=== PATIENT | female | born 2000 | race Caucasian/White ===

== ENCOUNTER 2020-07-29 12:08 | Outpatient (REF) | payer OTHER, SELFPAY ==
[2020-07-29 12:33] LABS: COVID-19 Test Negative (Negative); IDNOW Serial# 55D5AD1C
== END 2020-07-29 12:09 | disposition home or self-care (01) ==
LOC: HO.EMPCOV 12:08
PROVIDERS: Visit Provider Internal Medicine
DX: Z20.822 Contact with and (suspected) exposure to COVID-19 (principal)
CPT/HCPCS: 36415; 87635; C9803

== ENCOUNTER 2021-11-19 07:52 | Outpatient (REF) | payer OTHER, SELFPAY ==
--- NOTE | ~2021-11-19 | XR_ITS ---
EXAMINATION: XR HAND, RIGHT CLINICAL INFORMATION: Pain COMPARISON: None TECHNIQUE: PA, lateral, and oblique views of the right hand. XR/XR hand RT min 3V FINDINGS/IMPRESSION: Nondisplaced minimally angulated fracture of the fifth proximal phalanx, proximal metaphysis with slight dorsal cortical impaction. No intra-articular extension. No additional fractures. No dislocation. Soft tissue swelling about the fifth digit.
== END 2021-11-19 07:53 | disposition home or self-care (01) ==
LOC: HO.HOSX 07:52
PROVIDERS: Visit Provider Physician Assistant
DX: S62.616A Displaced fracture of proximal phalanx of right little finger, initial encounter for closed fracture (principal)
CPT/HCPCS: 26720; 73130; 99202

== ENCOUNTER 2021-12-01 09:12 | Outpatient (REF) | payer OTHER, SELFPAY ==
--- NOTE | ~2021-12-01 | XR_ITS ---
EXAMINATION: XR HAND, RIGHT CLINICAL INFORMATION: Right hand pain. COMPARISON: Right hand radiographs dated 11/19/2021. TECHNIQUE: PA, lateral, and oblique views of the right hand. FINDINGS: Redemonstration of a mildly displaced, predominantly oblique fracture through the base of the 5th proximal phalanx. No change in anatomic alignment. No significant new bone/callus formation. No dislocation. No joint space narrowing or marginal osteophytes. No osseous erosion. XR/XR hand RT min 3V IMPRESSION: Fifth proximal phalangeal fracture in unchanged anatomic alignment.
== END 2021-12-01 09:13 | disposition home or self-care (01) ==
LOC: HO.HOSX 09:12
PROVIDERS: Visit Provider Orthopaedic Surgery
DX: S62.616A Displaced fracture of proximal phalanx of right little finger, initial encounter for closed fracture (principal)
CPT/HCPCS: 26720; 73130; 99212

== ENCOUNTER 2021-12-01 20:30 | Emergency (ER) | payer OTHER, SELFPAY ==
[2021-12-01 20:35] VITALS: BP 147/79; PULSE 87; RESP 15; TEMP 36.3; O2SAT 94; BMI 24.7
[2021-12-01 20:48] VITALS: BP 116/80; PULSE 91; TEMP 36.6; O2SAT 99
--- NOTE | 2021-12-01 22:38 | ED_ITS ---
HPI - Extremity Problem General Chief complaint: Extremity Injury, Upper Stated complaint: Finger pain Time Seen by Provider: 12/01/21 20:56 Source: patient Mode of arrival: ambulatory Limitations: no limitations History of Present Illness HPI Narrative: 21-year-old female here with reports of right hand pain with numbness of the 3rd and 4th digit after having a cast applied in the orthopedic office just earlier today. She tells me prior to this she had no pain or sensation change. She tells me she has a known fracture of the of the right proximal phalanx (5th digit). She is right-handed. She had this injury while she was in the [employer] after a crush injury. She has been followed by Orthopedics and had been using a foam splint until today when a hard cast was applied. Related Data Home Medications Medication Instructions Recorded Confirmed No Known Home Meds 11/19/21 11/19/21 Allergies Allergy/AdvReac Type Severity Reaction Status Date / Time cephalexin [From Keflex] Allergy ate lining Verified 12/01/21 12:51 of stomach Review of Systems Review of Systems: Yes all other systems are reviewed and are negative Constitutional: Constitutional: Reports no additional constitutional complaints, Denies body ache(s), Denies chills, Denies fever(s), Denies headache(s) and Denies weakness Eyes: Eyes: Reports no additional eye complaints and Denies change in vision ENT: Reports system reviewed and no additional complaints, except as documented, Denies dizziness, Denies headache(s), Denies nasal congestion, Denies nasal discharge and Denies neck pain Cardiovascular: Cardiovascular: Reports no additional cardiovascular complaints, Denies chest pain, Denies leg edema and Denies dyspnea Respiratory: Respiratory: Reports no additional respiratory complaints, Denies cough and Denies dyspnea Gastrointestinal: Gastrointestinal: Reports no additional gastrointestinal complaints, Denies abdominal pain, Denies diarrhea, Denies nausea and Denies vomiting Genitourinary: Genitourinary: Reports no additional female genitourinary complaints and Denies urinary incontinence Musculoskeletal: Musculoskeletal: Reports no additional musculoskeletal complaints, Denies back pain, Reports arthralgias, Denies joint swelling, Denies neck pain, Reports numbness and Denies tingling Integumentary/Breasts: Skin/Breast: Reports system reviewed and no additional complaints, except as docu and Denies rash Neurologic: Reports system reviewed and no additional complaints, except as documented, Denies Abnormal speech present, Denies dizziness, Denies headache(s), Reports numbness, Denies tingling and Denies weakness PMFSH Past Medical History Attestation statement: The following information was validated with the patient. 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 Physical Exam Vital Signs: Vital Signs: Last Vital Signs Temp 97.9 F 12/01/21 20:48 Pulse 91 12/01/21 20:48 Resp 15 12/01/21 20:35 BP 116/80 12/01/21 20:48 Pulse Ox 99 12/01/21 20:48 BMI result Body Mass Index 24.7 Const: General: cooperative, healthy appearing, comfortable and no acute distress Orientation/consciousness: patient oriented x3 Limitations: no limitations HEENT: Head: Yes normal to inspection Ears: hearing grossly normal bilaterally General nose exam: Normal external nose present Face and sinus: Yes normal facial exam Mouth: Normal oral and palatal mucosa present Throat: Yes posterior oropharynx normal Eyes: General: appearance normal, both eyes and all related structures Pupils: Equal, round and reactive pupils present Neck: Neck: Yes normal visual inspection Chest: Chest palpation & inspection: normal inspection of the chest Resp: Effort & Inspection: normal respiratory effort Auscultation: clear to auscultation bilaterally Cardio: Rate: regular rate Rhythm: regular rhythm Peripheral pulses: Peripheral pulses 2+ throughout GI: Inspection: Yes normal to inspection Palpation (GI): Soft to palpation and nontender Auscultation: normal bowel sounds Back/Spine/Pelvis: Thoracic/Lumbar Spine: thoracic and lumbar spine normal to inspection Skin: General skin exam: no rashes or lesions noted Neuro: General: patient oriented x3, no focal motor deficits and normal sensation to monofilament Cranial nerves: Yes Equal, round and reactive pupils present Cognition (Neuro): normal cognition Speech: No Abnormal speech present Gait exam (Neuro): Normal gait present Motor exam (neuro): 5/5 motor strength present throughout Extrem: Other: There is a hard cast in place. Patient reports pain over the 4th and 5th digit distally and numbness over the 4th and 5th digits. General: Yes normal to inspection Course Course Course Narrative: 21-year-old female with a known fracture of the proximal phalanx of the right 5th digit here with numbness and pain after cast was applied in the orthopedic office earlier today. Cast was removed by Dr Hodges with immediate improvement in symptoms. Patient was placed in ulnar gutter splint and partial flexion of the 4th and 5th digits by nursing (Claudia MEDINA). Recommend she follow-up with Orthopedics office this week. I did speak to the orthopedic on-call Shaina WHEELER. MDM - Extremity (Nontraumatic) Medical Records Attestation: I reviewed the patient's medical records. Lab Data Attestation: I reviewed the patient's lab results. Procedures Orthopedic Splinting/Casting Injury #1: Side: right Upper Extremity Injury Location: hand Upper Extremity Immobilizer: ulnar gutter Discharge Plan Discharge Clinical Impression: Aftercare for cast or splint check or change, Fracture of proximal phalanx of finger of right hand, Fracture of proximal phalanx of right little finger Patient Disposition: Home, Self-Care Instructions: Finger Fracture (ED), Splint Care (ED) Additional Instructions: Call Orthopedics tomorrow Do not get the splint wet Prescriptions: No Action No Known Home Meds 0RF Referrals: Shannan Murphy MD [Physician] - 3 days
== END 2021-12-01 23:15 | disposition home or self-care (01) ==
PROVIDERS: Emergency Provider Internal Medicine
DX: S62.616A Displaced fracture of proximal phalanx of right little finger, initial encounter for closed fracture (principal); X58.XXXA Exposure to other specified factors, initial encounter; Y93.9 Activity, unspecified; Y92.9 Unspecified place or not applicable; Y99.9 Unspecified external cause status
CPT/HCPCS: 29130; 99282; 99283

== ENCOUNTER 2021-12-02 09:35 | Outpatient (REF) | payer OTHER, SELFPAY ==
--- NOTE | ~2021-12-02 | XR_ITS ---
EXAMINATION: XR HAND, RIGHT CLINICAL INFORMATION: Pain COMPARISON: X-ray 12/01/2021, 11/19/2021 TECHNIQUE: PA, lateral, and oblique views of the right hand. FINDINGS: Redemonstrated is a mildly displaced, predominantly oblique fracture through the base of the fifth proximal phalanx, with no significant interval change in positioning and alignment. No significant callus or new bone formation is seen. No new additional fractures identified. XR/XR hand RT min 3V IMPRESSION: Stable appearance and alignment of the fifth proximal phalanx fracture.
== END 2021-12-02 09:36 | disposition home or self-care (01) ==
LOC: HO.HOSX 09:35
PROVIDERS: Visit Provider Orthopaedic Surgery
DX: S62.616D Displaced fracture of proximal phalanx of right little finger, subsequent encounter for fracture with routine healing (principal)
CPT/HCPCS: 29075; 73130; 99212

== ENCOUNTER → 2021-12-10 14:03 | Outpatient (BNVA) | payer OTHER, SELFPAY | PROVIDERS: Visit Provider Orthopaedic Surgery | DX: S62.616D Displaced fracture of proximal phalanx of right little finger, subsequent encounter for fracture with routine healing (principal) | CPT/HCPCS: 99212 ==

== ENCOUNTER 2021-12-17 08:40 | Outpatient (REF) | payer OTHER, SELFPAY ==
--- NOTE | ~2021-12-17 | XR_ITS ---
EXAMINATION: XR HAND, RIGHT CLINICAL INFORMATION: Displaced fracture of the proximal phalanx of the right little finger. COMPARISON: 12/02/2021 TECHNIQUE: PA, lateral, and oblique views of the right hand. FINDINGS: There is a fracture along the proximal shaft of the fifth digit proximal phalanx. The fracture line remains evident. No definite intra-articular extension. Unchanged alignment from prior. No significant callus formation. Joint spaces are maintained. XR/XR hand RT min 3V IMPRESSION: No significant change in appearance of the fracture at the proximal shaft of the fifth digit proximal phalanx.
== END 2021-12-17 08:41 | disposition home or self-care (01) ==
LOC: HO.HOSX 08:40
PROVIDERS: Visit Provider Orthopaedic Surgery
DX: S62.616D Displaced fracture of proximal phalanx of right little finger, subsequent encounter for fracture with routine healing (principal); X58.XXXD Exposure to other specified factors, subsequent encounter
CPT/HCPCS: 73130; 99212

== ENCOUNTER 2022-01-05 08:30 | Outpatient (RCR) | payer OTHER, SELFPAY ==
--- NOTE | 2021-12-29 10:42 | MHC.OT.EP ---
[address] [phone] Occupational Therapy Plan of Care Date of Evaluation: 12/29/21 Diagnosis: Displaced fx of R small finger proximal phalanx Assessment: Pt. is a 21 y/o female s/p displaced fx of R small finger proximal phalanx. Injury happened while at work when a dumpster lid fell on her hand. Pt. is currently out of work as there is no light duty option. Pt. is having some pain and discomfort with lifting heavy items and weight bearing. She reports mild difficulty with opening jars and verbalizes some concern with lack of hand strength as she frequently needs to lift/position people at work. Fawn would benefit from short term skilled OT services to restore normal hand function and regain strength. Frequency and Duration: The patient will be seen 2x/wk for 3 weeks Short Term Goals: See below Senior Living Goals: IND with HEP Pain free with ADL's/IADL's R gross grasp >55# Pt. will demonstrate ability to lift >25# without c/o pain for safe return to work Treatment Plan: Therapeutic Exercise Therapeutic Activity Home Exercise Program Patient Education Ultrasound Paraffin Fluidotherapy MHP Cold Packs Joint Mobilization Soft Tissue Mobilization Kinesiotaping Electronically Signed By: Angle Newsome, OTR/L Please Sign and return to therapist. Thank you once again for your referral.
--- NOTE | 2021-12-29 10:58 | MHC.OT.EP ---
[address] [phone] Occupational Therapy Plan of Care Date of Evaluation: 12/29/21 Diagnosis: Displaced fx of R small finger proximal phalanx Assessment: Pt. is a 21 y/o female s/p displaced fx of R small finger proximal phalanx. Injury happened while at work when a dumpster lid fell on her hand. Pt. is currently out of work as there is no light duty option. Pt. is having some pain and discomfort with lifting heavy items and weight bearing. She reports mild difficulty with opening jars and verbalizes some concern with lack of hand strength as she frequently needs to lift/position people at work. Fawn would benefit from short term skilled OT services to restore normal hand function and regain strength. 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 will demonstrate ability to lift >25# without c/o pain Treatment Plan: Therapeutic Exercise Therapeutic Activity Home Exercise Program Patient Education Ultrasound Paraffin Fluidotherapy MHP Cold Packs Joint Mobilization Soft Tissue Mobilization Kinesiotaping Electronically Signed By: Angle Newsome, OTR/L Please Sign and return to therapist. Thank you once again for your referral.
--- NOTE | 2021-12-29 11:04 | MHC.OT.EP ---
[address] [phone] Occupational Therapy Plan of Care Date of Evaluation: 12/29/21 Diagnosis: Displaced fx of R small finger proximal phalanx Assessment: Pt. is a 21 y/o female s/p displaced fx of R small finger proximal phalanx. Injury happened while at work when a dumpster lid fell on her hand. Pt. is currently out of work as there is no light duty option. Pt. is having some pain and discomfort with lifting heavy items and weight bearing. She reports mild difficulty with opening jars and verbalizes some concern with lack of hand strength as she frequently needs to lift/position people at work. Fawn would benefit from short term skilled OT services to restore normal hand function and regain strength. 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 will demonstrate ability to lift >25# without c/o pain Treatment Plan: Therapeutic Exercise Therapeutic Activity Home Exercise Program Patient Education Ultrasound Paraffin Fluidotherapy MHP Cold Packs Joint Mobilization Soft Tissue Mobilization Kinesiotaping Electronically Signed By: Angle Newsome, OTR/L Please Sign and return to therapist. Thank you once again for your referral.
== END 2022-02-23 10:32 | disposition home or self-care (01) ==
LOC: HO.OT 08:30
PROVIDERS: Visit Provider Orthopaedic Surgery
DX: S62.616D Displaced fracture of proximal phalanx of right little finger, subsequent encounter for fracture with routine healing (principal)
CPT/HCPCS: 97110; 97165; 97530

== ENCOUNTER → 2022-01-07 10:17 | Outpatient (BNVA) | payer OTHER, SELFPAY | PROVIDERS: Visit Provider Orthopaedic Surgery | DX: S62.616D Displaced fracture of proximal phalanx of right little finger, subsequent encounter for fracture with routine healing (principal) | CPT/HCPCS: 99212 ==

== ENCOUNTER 2024-04-05 11:39 | Outpatient (REF) | payer BC, SELFPAY ==
[2024-04-05 14:42] LABS: Osmolality, Serum 294 mosm/kg (281-305)
[2024-04-05 14:48] LABS: Anion Gap 12 (12-20); Blood Urea Nitrogen 10 mg/dL (9-16); Carbon Dioxide 28 mmol/L (22-29); Chloride 105 mmol/L (96-108); Estimated Glomerular Filt Rate > 60; Glucose Random 77 mg/dL (60-115); Potassium 4.3 mmol/L (3.3-5.1); Sodium 141 mmol/L (135-145)
[2024-04-16 01:53] LABS: Cortisol, Free 0.26 mcg/dL
== END 2024-04-05 11:40 | disposition home or self-care (01) ==
LOC: HO.LAB 11:39
PROVIDERS: PCP Nurse Practitioner Family; Referring Provider Nurse Practitioner Family; Visit Provider Internal Medicine Hypertension Specialist
DX: E87.0 Hyperosmolality and hypernatremia (principal)
CPT/HCPCS: 36415; 80048; 82530; 83930

== ENCOUNTER 2024-04-05 11:39 | Outpatient (AMB) | payer BC, SELFPAY ==
--- NOTE | 2024-04-05 11:50 | HO.NEPHOV ---
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 She is here because she has been craving salt and she is having dizziness. She was never had hypertension no edema. She admits to taking increasing amounts of salt to avoid presyncopal episodes. No polyuria or polydipsia. 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 Blood pressure is symmetric in both upper extremity Const General: comfortable; No acute distress Orientation/consciousness: patient oriented x3 Eyes General: appearance normal, both eyes and all related structures Visual Almaguer: normal visual almaguer by confrontation Neck Neck: Yes supple and Yes no JVD Resp Effort & Inspection: normal respiratory effort and respiratory effort not decreased Auscultation: rhonchi Cardio Palpation: no palpable S3 and no palpable S4 Heart sounds: no rubs GI Inspection: Yes normal to inspection Palpation (GI): Soft to palpation Percussion: Yes normal to percussion Auscultation: normal bowel sounds General: Yes no CVA tenderness Back/Spine/Pelvis Back: no CVA tenderness Skin General skin exam: no petechiae and no purpura Neuro General: patient oriented x3 and no focal motor deficits Extrem General: No clubbing and No edema Results Reviewed Nephrology Results: Sodium Pending 04/05/24 Potassium Pending 04/05/24 Chloride Pending 04/05/24 Carbon Dioxide Pending 04/05/24 BUN Pending 04/05/24 Creatinine Pending 04/05/24 Calcium Pending 04/05/24 Assessment & Plan Assessment & Plan (1) Hypernatremia: Code(s): E87.0 - Hyperosmolality and hypernatremia Category: Medical Plan Young woman with has been normal renal function with increased salt intake. The blood pressure is acceptable for age. No orthostatic changes. Fluid status seems acceptable. No evidence of hypovolemia. No documented episodes of hyper or hyponatremia. I will obtain a 24 urine collection to document the volume along with the urinary sodium excretion. Further workup will be based on the outcome of the above investigations. Orders: Orders Basic Metabolic Panel Today E87.0 - Hyperosmolality and hypernatremia Osmolality Urine Today E87.0 - Hyperosmolality and hypernatremia UA and rflx microscopic Today E87.0 - Hyperosmolality and hypernatremia Osmolality, Serum Today E87.0 - Hyperosmolality and hypernatremia Cortisol, Free Today E87.0 - Hyperosmolality and hypernatremia Sodium, 24Hr Urine Group Today E87.0 - Hyperosmolality and hypernatremia Creatinine, 24 Hr Group Today E87.0 - Hyperosmolality and hypernatremia Coding Level of Care Code New Pt Level 4 (00487) Diagnoses Hypernatremia E87.0
[2024-04-05 11:51] VITALS: BP 114/82; PULSE 91; O2SAT 97; BMI 29.8
== END 2024-04-05 12:12 | disposition home or self-care (01) ==
PROVIDERS: PCP Nurse Practitioner Family; Referring Provider Nurse Practitioner Family; Visit Provider Internal Medicine Hypertension Specialist
DX: E87.0 Hyperosmolality and hypernatremia (principal)
CPT/HCPCS: 99204

== ENCOUNTER 2024-04-26 08:00 | Outpatient (REF) | payer BC, SELFPAY ==
[2024-04-26 14:02] LABS: Creatinine, mg/dL 68.98; Creatinine, mg/dL 69.18
[2024-04-26 14:04] LABS: Total Volume 24 Hour Urine 1425 mL
== END 2024-04-26 08:01 | disposition home or self-care (01) ==
LOC: HO.HMGCLNP 08:00
PROVIDERS: PCP Nurse Practitioner Family; Visit Provider Internal Medicine Hypertension Specialist
DX: E87.0 Hyperosmolality and hypernatremia (principal)
CPT/HCPCS: 82570; 84300

== ENCOUNTER 2024-05-01 10:28 | Outpatient (AMB) | payer BC, SELFPAY ==
--- NOTE | 2024-05-01 10:31 | HO.NEPHOV ---
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 She is here because she has been craving salt and she is having dizziness. She was never had hypertension no edema. She admits to taking increasing amounts of salt to avoid presyncopal episodes. No polyuria or polydipsia. 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 Physical Exam Vital Signs: Last Vital Signs Pulse 90 05/01/24 10:33 BP 106/68 05/01/24 10:33 Pulse Ox 97 05/01/24 10:33 Oxygen Delivery Method Room Air 05/01/24 10:33 BMI result Body Mass Index 29.3 Const General: comfortable; No acute distress Orientation/consciousness: patient oriented x3 Eyes General: appearance normal, both eyes and all related structures Visual Almaguer: normal visual almaguer by confrontation Neck Neck: Yes supple and Yes no JVD Resp Effort & Inspection: normal respiratory effort and respiratory effort not decreased Auscultation: rhonchi Cardio Palpation: no palpable S3 and no palpable S4 Heart sounds: no rubs GI Inspection: Yes normal to inspection Palpation (GI): Soft to palpation Percussion: Yes normal to percussion Auscultation: normal bowel sounds General: Yes no CVA tenderness Back/Spine/Pelvis Back: no CVA tenderness Skin General skin exam: no petechiae and no purpura Neuro General: patient oriented x3 and no focal motor deficits Extrem General: No clubbing and No edema Results Reviewed Nephrology Results: Sodium 141 mmol/L (135-145) 04/05/24 Potassium 4.3 mmol/L (3.3-5.1) 04/05/24 Chloride 105 mmol/L (96-108) 04/05/24 Carbon Dioxide 28 mmol/L (22-29) 04/05/24 BUN 10 mg/dL (9-16) 04/05/24 Creatinine 0.81 mg/dL (0.5-1.4) 04/05/24 Calcium 10.0 mg/dL (8.4-10.2) 04/05/24 Assessment & Plan Assessment & Plan (1) Hypernatremia: Code(s): E87.0 - Hyperosmolality and hypernatremia Category: Medical Plan Young woman with has been normal renal function with increased salt intake. The blood pressure is acceptable for age. No orthostatic changes. Fluid status seems acceptable. No evidence of hypovolemia. No documented episodes of hyper or hyponatremia. 24 urine collection showed urinary sodium excretion. Serum cortisol normal Discussed all orthostatic precautions including had an elevation at 15-30 degrees Slow change in posture and using tight stockings. If she has persistent symptomatic orthostatic changes I would consider small dose of midodrine. At this point I do not he and absolute indication to use midodrine. I have reassured her and we will be happy to see her as needed. Coding Level of Care Code Est Pt Level 3 (31618) Diagnoses Hypernatremia E87.0
[2024-05-01 10:33] VITALS: BP 106/68; PULSE 90; O2SAT 97; BMI 29.3
== END 2024-05-01 10:44 | disposition home or self-care (01) ==
PROVIDERS: PCP Nurse Practitioner Family; Visit Provider Internal Medicine Hypertension Specialist
DX: E87.0 Hyperosmolality and hypernatremia (principal)
CPT/HCPCS: 99213

== ENCOUNTER → 2024-05-01 10:28 | Outpatient (BNVA) | payer BC, SELFPAY | PROVIDERS: PCP Nurse Practitioner Family; Visit Provider Internal Medicine Hypertension Specialist ==

== ENCOUNTER 2024-07-08 15:24 | Emergency (ER) | payer BC, SELFPAY ==
--- NOTE | ~2024-07-08 | XR_ITS ---
CLINICAL HISTORY: dog bite to left pointer finger Radiographs of the left hand/wrist, 3 views of the left hand/wrist with a navicular view of the wrist Comparison: None Findings: Lucency without cortical irregularity is seen in the distal tuft of the 2nd distal phalanx, best appreciated on the lateral view. No dislocation. The joint spaces are preserved without osteophytosis. Bone mineralization is normal. Soft tissue swelling. Impression: Questionable tiny nondisplaced fracture of the 2nd distal phalanx. Follow up radiographs in 10-14 days may be helpful if there is continued clinical concern for fracture. This document has been electronically signed by: Inez Burton MD on 07/08/2024 16:25:09
--- NOTE | ~2024-07-08 | XR_ITS ---
CLINICAL HISTORY: dog bite to hand Radiographs of the right hand/wrist, 3 views of the right hand/wrist with a navicular view of the wrist Comparison: 12/17/21 Findings: There is contour abnormality at the dorsal aspect of distal metaphysis of the 2nd and 3rd metacarpals. No dislocation. The joint spaces are preserved without osteophytosis. Bone mineralization is normal. Soft tissue swelling and foci of air. No radiopaque foreign body. Impression: Fractures of the 2nd and 3rd metacarpals. Air in the soft tissues is likely secondary to laceration; correlate clinically for signs/symptoms of infection. This document has been electronically signed by: Inez Burton MD on 07/08/2024 16:28:46
[2024-07-08 15:27] VITALS: BP 142/67; PULSE 111; RESP 16; TEMP 36.7; O2SAT 98; BMI 27.6
--- NOTE | 2024-07-08 15:30 | ED_ITS ---
HPI - Skin/Abscess/Foreign Bdy General Chief complaint: Skin/Abscess/Foreign Body Stated complaint: R hand lac Time Seen by Provider: 07/08/24 15:32 Source: patient, RN notes reviewed and old records reviewed Mode of arrival: ambulatory History of Present Illness ED Provider: Ana Carpio PA-C HPI narrative: 23-year-old female with no significant past medical history presenting to the ED complaining of laceration/wounds to bilateral hands, and bilateral hand pain/swelling s/p breaking up a dog fight [employer]GRAM INSTRU[employer]. Patient states they [place] on the highway when their 2 dogs started sliding in the back seat, attempted to break them up. Patient and animals all up-to-date on vaccinations including rabies. Reports decreased ROM to right hand secondary to pain. Denies injury to other areas, anticoagulation use, numbness/tingling Related Data Home Medications ?Medication ?Instructions ?Recorded ?Confirmed hydroxyzine pamoate 25 mg capsule 25 mg PO BID PRN 04/05/24 04/05/24 Previous Rx's ?Medication ?Instructions ?Recorded amoxicillin 875 mg-potassium 1 tab PO BID 7 days #14 tabs 07/08/24 clavulanate 125 mg tablet Allergies Allergy/AdvReac Type Severity Reaction Status Date / Time cephalexin [From Keflex] Allergy ate lining Verified 07/08/24 15:30 of stomach Review of Systems 2 Review of Systems: Yes all other systems are reviewed and are negative Constitutional: Constitutional: Reports as per HPI [facility] Past Medical History Attestation statement: The following information was validated with the patient. 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 Physical Exam 2 Vital Signs: Vital Signs: Last Vital Signs Temp 98.3 F 07/08/24 18:10 Pulse 99 07/08/24 18:10 Resp 16 07/08/24 18:10 BP 114/66 07/08/24 18:10 Pulse Ox 100 07/08/24 18:10 O2 Del Method Room Air 07/08/24 18:10 BMI result Body Mass Index 27.6 Const: General: cooperative, healthy appearing and no acute distress O rientation/consciousness: patient oriented x3 Limitations: no limitations HEENT: Head: Yes normal to inspection and Yes atraumatic Ears: hearing grossly normal bilaterally General nose exam: Normal external nose present Face and sinus: Yes normal facial exam Eyes: General: appearance normal, both eyes and all related structures EOM: EOMs intact bilaterally Neck: Neck: Yes normal visual inspection and Yes no meningeal signs Resp: Effort & Inspection: normal respiratory effort and no respiratory distress Auscultation: clear to auscultation bilaterally Cardio: Rate: regular rate Heart sounds: S1 normal heart sound present and S2 normal heart sound present Skin: Rashes: no rashes Neuro: General: patient oriented x3, tone normal and no meningeal signs C ranial nerves: Yes CN's II-XII intact bilaterally Gait exam (Neuro): Normal gait present Extrem: Other: Please refer to images above. Puncture wound to volar aspect of right hand with swelling and diffuse hand tenderness. 4 cm laceration noted to palmar aspect o f right hand. Bleeding controlled. Underlying structures appear intact. 2 cm laceration noted to palmar aspect of 3rd digit at MCP. Small puncture wound noted to index finger of left hand. Course Course Course Narrative: This is a Rapid Medical Examination (RME) performed by Angy Flor PA-C in triage. Full HPI, ROS, assessment and treatment plan per primary provider in the Main ED. 23 yo female here for eval of multiple dog bites to right hand and left first digit. She reports both of her dogs began fighting while driving in the car. They attempted to pullman conductor when 1 of her dogs bit down on her right hand, clamped and pulled the hand. she also endorses bite to left 2nd digit. wounds dressed in triage. patient placed in minor care for eval. tetanus UTD. Plan: xrs, rabies series XR hand wrist RT Impression: Fractures of the 2nd and 3rd metacarpals. Air in the soft tissues is likely secondary to laceration; correlate clinically for signs/symptoms of infection. XR hand wrist LT Impression: Questionable tiny nondisplaced fracture of the 2nd distal phalanx. Follow up radiographs in 10-14 days may be helpful if there is continued clinical concern for fracture > case discussed with orthopedic LIAM Arevalo recommended splinting in position of safety and follow-up in the office this week Two larger palmar wounds closely approximated with sutures. Volar splint in position of safety applied to right upper extremity and finger splint applied to left upper extremity Results discussed with patient including worrisome signs and symptoms and strict return precautions, and when to return to the emergency department. They verbalized understanding and feel safe for discharge at this time. Medications Administered Discontinued Medications Generic Name Dose Route Start Last Admin Trade Name Freq PRN Reason Stop Dose Admin Lidocaine HCl 5 ml 07/08/24 16:09 07/08/24 16:20 Lidocaine Hcl 1 % Mpf 5 Ml Vial INFILTRATI 07/08/24 16:10 5 ml ONCE ONE Administration Medical Decision Making Medical Decision Making MDM Narrative: 23-year-old female with no significant past medical history presenting to the ED complaining of laceration/wounds to bilateral hands, and bilateral hand pain/swelling s/p breaking up a dog fight [employer]GRAM [employer]. On exam tachycardic likely from pain, NAD, nontoxic appearing, physical exam as noted above. Please refer to images. Concern for puncture wounds and lacerations vs fractures. Lower suspicion for tendon/ligamental injury Plan: X-rays, p.o. antibiotics, wound care Please refer to course for remaining clinical decision making, interpretation of labs/imaging results, and discussions with consultants and/or family members. Differential Diagnosis Differential Diagnoses: The differential diagnosis associated with the presentation includes As above Admission/Observation Consideration of admission/observation: Escalation of care including admission/observation considered Consult Healthcare Provider Management of the patient was discussed with: Trackman Lab Data [facility] Lab Attestation statement: I reviewed the patient's lab results. Independent Interpretation I performed an independent interpretation of an: Plain X-Ray Radiology Impression Discussion of test interpretation with radiology: I have reviewed the radiologist's reading. Independent Historian Clinical information obtained from an independent historian. History obtained from or confirmed by: Spouse External Record Review External record reviewed: Inpatient record, Office record, Outpatient record, Prior outpatient labs, Prior outpatient radiology, Primary care record and Outside ED record Tests considered The following testing was considered but not selected: As above Prescription Management I considered prescription management with: Pain Medication and Antibiotic Chronic Conditions Patient?s care impacted by: Other Social Determinants Patient?s care significantly limited by Social Determinants of Health including: Other Social Determinant of Health Procedures Laceration Laceration 1: Site: hand Side (If applicable): right Size (cm): 4 Description: linear Depth: simple, single layer Local Anesthetic: lidocaine 1% Amount of anesthesia used (mL): 7 Pre-repair: wound explored Skin layer closed with: nylon Size (cm): 4-0 Number of sutures: 5 Technique: simple, interrupted Laceration 2: Site: hand Side (If applicable): right Size (cm): 2 Description: linear Depth: simple, single layer Local Anesthetic: lidocaine 1% Amount of anesthesia used (mL): 2 Pre-repair: wound explored Skin layer closed with: nylon Size (cm): 4-0 Number of sutures: 2 Technique: simple, interrupted Orthopedic Splinting/Casting Injury #1: Side: right Upper Extremity Injury Location: hand Upper Extremity Immobilizer: volar splint (position of safety) Injury #2: Side: left Upper Extremity Injury Location: finger Upper Extremity Immobilizer: finger (other) Discharge Plan Discharge Clinical Impression: Dog bite, Hand laceration, Fracture of metacarpal, Fracture of distal phalanx of finger Patient Disposition: Home, Self-Care Instructions: Animal Bite (ED), Laceration (DC), Finger Fracture (ED), Hand Fracture (ED) Additional Instructions: You have multiple dog bite wounds hand lacerations that were repaired in the emergency department. Bite wounds have high likelihood of getting infected. Please keep a close eye in the area. You also have a questionable nondisplaced fracture of your left index finger and fractures of both your 2nd and 3rd metacarpals on your right hand. Please keep splint on, dry, clean You need to follow-up with orthopedic office in the next 2-3 days If fingers become increasingly swollen, numb, discolored, pain is unbearable remove splint and return to the ED immediately Take antibiotics until completion Prescriptions: New amoxicillin-pot clavulanate 875-125 mg tablet 1 tab PO BID 7 Days Qty: 14 0RF No Action hydroxyzine pamoate 25 mg capsule 25 mg PO BID PRN Referrals: [facility] [Provider Group] - 2 days Stand Alone Forms: Work/School Release Print Language: Bengali
[2024-07-08] MEDS: Lidocaine HCl 1 % MPF 5 ML VIAL INFILTRATI (16:20)
[2024-07-08 18:10] VITALS: BP 114/66; PULSE 99; RESP 16; TEMP 36.8; O2SAT 100
[2024-07-08 18:58] VITALS: BP 114/66; PULSE 99; RESP 16; TEMP 36.8; O2SAT 100
== END 2024-07-08 18:58 | disposition home or self-care (01) ==
PROVIDERS: Emergency Provider Internal Medicine; PCP Nurse Practitioner Family
DX: S61.411A Laceration without foreign body of right hand, initial encounter (principal); M79.641 Pain in right hand; W54.0XXA Bitten by dog, initial encounter; Y93.89 Activity, other specified; Y92.89 Other specified places as the place of occurrence of the external cause; Y99.8 Other external cause status
CPT/HCPCS: 12042; 73110; 73130; 99283; 99284; J2003

== ENCOUNTER 2024-07-10 09:41 | Outpatient (AMB) | payer OTHER, SELFPAY ==
--- NOTE | 2024-07-10 09:45 | A.OFFVIS_ITS ---
Vital Signs 07/10/24 09:55 Height 5 ft 3 in Weight 156 lb BMI 27.6 Handedness Ambidextrous Intake Visit Reasons: FC-of metacarpal,distal phalanx of RT hand Intake Note: Fawn is a 23 year old ambidextrous female who presents today for a evaluation of her right hand inj, DOI 07/08/24. Patient reports she was breaking up a dog fight. Patient states they [place] on the highway when their 2 dogs started sliding in the back seat, attempted to break them up. She mentions both of her hands got hurt and that on her left pointer finger she is feeling numbness on the DIP. 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 On 07/08/2025 she was breaking up a fight between her 2 dogs in the car when she sustained bite wounds to her right hand and left index finger. She was seen in the emergency department where the wounds were washed out and sutured closed. She was placed on Augmentin. All in all, they believe that the swelling is improving. 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 Physical Exam Vital Signs: BMI result Body Mass Index 27.6 Const General: cooperative, healthy appearing and no acute distress Orientation/consciousness: oriented to person and oriented to place HEENT Head: Yes normocephalic and Yes atraumatic Eyes EOM: EOMs intact bilaterally Resp Effort & Inspection: normal respiratory effort and able to speak in complete sentences Cardio Jugular venous distension: no JVD Skin General skin exam: turgor normal Rashes: no rashes Neuro General: oriented to person and oriented to place Extrem Other: Evaluation of right Upper Extremity: The patient was alert oriented and in no acute distress. With regards to the right hand: She does have a fair amount of swelling and some resolving ecchymosis. She has dorsal bite wounds roughly over the base of the 2nd metacarpal and the mid aspect of the 3rd metacarpal. It is not likely that the wound over the 2nd metacarpal extends to the fracture/cortical defect of the more distal aspect of the 2nd metacarpal. With regards to the wound over the 3rd metacarpal, it is possible that it could have communicated with that wound, but not certain. Per the patient and her partner the dorsal hand swelling has improved in the last 2 days.. On the palmar side she has a transverse laceration measuring approximately 3-1/2 cm in the radial aspect of the mid palmar crease. The wound has sutures in place. She also has a transverse wound at the palmar digital crease at the base of the middle finger that is also sutured. No purulence or other drainage today. She is tending to hold the right hand in a slightly flexed position at the MCP and PIP joints. With encouragement I got her to actively extend the hand some, with full extension to the small and ring fingers and partial extension at the middle and index fingers. Again there is concerned that if she were to fully extend the middle finger that she could pull ope in the wound at the palmar digital crease. Importantly, FDP and FDS tendon function appears to be intact to all digits. Also, radial digital nerve and ulnar digital nerve is intact to the tips of all fingers. She can weakly bring her fingers closed towards a fist bring the fingertips to within a cm to of the palm. It is more painful again to get significant extension particularly in the middle and index fingers. Good active range of motion of the thumb. Good active range of motion at the wrist with encouragement including flexion extension and prono-supination With regards to the left index finger, she does have a puncture wound to the side of the nail. This appears to be healing. No wounds more proximally and she has good active flexion and extension of all digits in the left hand. The wound appears to be healing with no erythema or drainage. Radiographs: Three views of the left and right hands were reviewed by me from 07/08/2024, and right hand radiographs from today. With regards to the right hand radiographs: It does appear that she has dorsal cortical defects in the distal metaphyseal region of the 2nd and 3rd metacarpals consistent with bite wounds that punctured the dorsal cortex. The regards to the left hand radiographs: There is a question of a possible nondisplaced fracture of the distal phalanx. Psych Appearance: grossly normal Affect: normal affect Attitude: cooperative Office Procedures AMB Fracture Care Details: Fracture care 16014 x 2 Fracture Billing Code: Fracture Billing Code Assessment & Plan Assessment & Plan (1) Fracture of second metacarpal bone of right hand: Code(s): S62.300A - Unspecified fracture of second metacarpal bone, right hand, initial encounter for closed fracture Category: Medical (2) Fracture of third metacarpal bone of right hand: Code(s): S62.302A - Unspecified fracture of third metacarpal bone, right hand, initial encounter for closed fracture Category: Medical (3) Dog bite of left hand: Code(s): S61.452A - Open bite of left hand, initial encounter; W54.0XXA - Bitten by dog, initial encounter Category: Medical (4) Dog bite of right hand: Code(s): S61.451A - Open bite of right hand, initial encounter; W54.0XXA - Bitten by dog, initial encounter Category: Medical Plan Assessment and plan: 1. Right 2nd metacarpal fracture, nondisplaced This appears to be a closed fracture 2. Right 3rd metacarpal fracture, nondisplaced Possibly closed, possibly open Both of these are related to dog bites with dorsal cortical penetration at the distal metaphyses. Overall swelling improving 3. Dog bite to right hand with transverse laceration mid palmar, and another laceration at the palmar digital crease of the middle finger Washed out and sutured in the ED 4. Left index finger dog bite wound Question of possible nondisplaced distal phalanx fracture Patient was placed on 7 days of Augmentin in the ED. The patient and her partner believe that overall her swelling is improving. We did discuss operative and non operative treatment. Given that she appears to be improving, I am heading out of town today and we would need to transfer her to [facility] if we were to proceed with an I&D, we both agree to continue with non operative management. She will continue Augmentin. I do want her to work on finger range of motion of the right hand and showed her some gentle exercises that she is going to work on. Follow-up in 3 days for a wound check with LIAM Gaines. Júnior had a chance to see the wounds today. At that time I think she should be given another 7 day course of Augmentin, and be closely followed. Orders: Orders XR hand RT min 3V Today M79.641 - Pain in right hand Coding Level of Care Code New Pt Level 4 (85305) Diagnoses Fracture of second metacarpal bone of right hand S62.300A Fracture of third metacarpal bone of right hand S62.302A Dog bite of left hand S61.452A; W54.0XXA Dog bite of right hand S61.451A; W54.0XXA CPT Codes Fracture Care - Fracture Billing Code: Fracture Billing Code ([id number])
[2024-07-10 09:55] VITALS: BMI 27.6
== END 2024-07-10 10:49 | disposition home or self-care (01) ==
PROVIDERS: PCP Nurse Practitioner Family; Visit Provider Orthopaedic Surgery
DX: S62.300A Unspecified fracture of second metacarpal bone, right hand, initial encounter for closed fracture (principal); S62.302A Unspecified fracture of third metacarpal bone, right hand, initial encounter for closed fracture; S61.452A Open bite of left hand, initial encounter; W54.0XXA Bitten by dog, initial encounter; S61.451A Open bite of right hand, initial encounter
CPT/HCPCS: 99214

== ENCOUNTER → 2024-07-10 09:44 | Outpatient (BNV) | payer OTHER, SELFPAY | PROVIDERS: Visit Provider Radiology Diagnostic Radiology | DX: M79.641 Pain in right hand (principal) | CPT/HCPCS: 73130 ==

== ENCOUNTER 2024-07-10 13:01 | Outpatient (REF) | payer OTHER, SELFPAY ==
--- NOTE | ~2024-07-10 | XR_ITS ---
EXAMINATION: XR HAND 3 OR MORE VIEWS RIGHT HISTORY: M79.641 - Pain in right hand COMPARISON: There are no prior studies available for comparison. FINDINGS: Three views of the right hand are submitted. Osseous mineralization is normal. There is no fracture or dislocation. The joint spaces are preserved. The soft tissues are unremarkable. XR/XR hand RT min 3V IMPRESSION: Unremarkable examination of the right hand. Electronically signed by: Victor M Snyder MD 07/17/2024 03:09 PM MARTIN
== END 2024-07-10 13:02 | disposition home or self-care (01) ==
LOC: HO.HOSX 13:01
PROVIDERS: Visit Provider Orthopaedic Surgery
DX: M79.641 Pain in right hand (principal)
CPT/HCPCS: 73130

== ENCOUNTER 2024-07-13 08:27 | Outpatient (AMB) | payer OTHER, SELFPAY ==
--- NOTE | 2024-07-13 08:35 | A.OFFVIS_ITS ---
Intake Visit Reasons: OV: right hand MC FX DOI 07/08/24 Intake Note: Fawn is a 23 year old ambidextrous female who presents today for a follow up and wound check of her right hand injuries s/p dog bite DOI: 07/08/24. She states everything is going well. Patient hasn't noticed any drainage on the open wound on the dorsal aspect of the hand. Allergies cephalexin [From Keflex] Allergy (Verified 07/13/24 08:40) ate lining of stomach HPI HPI OV: right hand MC FX DOI 07/08/24: Details: Patient is a 23-year-old female who presents for follow-up evaluation of right hand open metacarpal fracture from a dog date of injury 07/08/2024. Today, the patient that she is feeling much better, and then she thing no baseline pain in the right hand. Patient reports that her edema has gone down significantly, and she has no redness anywhere in the right hand. Patient reports that the ecchymosis present on her right hand is resolving, and she has no drainage from any of the laceration sites. No other acute complaints or concerns at this time. 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 Review of Systems Const All systems reviewed & are unremarkable except as noted in HPI and below Physical Exam Const General: cooperative, healthy appearing and no acute distress Orientation/consciousness: oriented to person and oriented to place HEENT Head: Yes normocephalic and Yes atraumatic Eyes EOM: EOMs intact bilaterally Resp Effort & Inspection: normal respiratory effort and able to speak in complete sentences Cardio Jugular venous distension: no JVD Skin General skin exam: turgor normal Rashes: no rashes Neuro General: oriented to person and oriented to place Extrem Other: Patient is alert, oriented, and in no acute distress. Neuro: Normal sensation of the tips of all digits of the left hand at this time Vascular: Cap refill brisk Pain: Patient reports no tenderness to palpation about the laceration sites on either the dorsal and volar aspects of the left hand Patient reports no pain with range of motion ROM: Patient is able to get close to making a closed fist, but due to the position of the suturing is unable to extend the left middle finger fully, is able to extend all other digits fully and without difficulty Skin: There is noted to be an approximately 4-5 cm laceration on the volar and radial aspect of the patient's left hand, with sutures in place and no evidence of surrounding erythema or drainage There are also noted to be 2 small lacerations on the dorsal aspect of the patient's radial left hand, with no active drainage or surrounding erythema at this time No drainage from any of these laceration sites No other evidence of infection Psych: Appears grossly normal Affect normal Attitude cooperative Psych Appearance: grossly normal Affect: normal affect Attitude: cooperative Assessment & Plan Assessment & Plan (1) Fracture of second metacarpal bone of right hand: Code(s): S62.300A - Unspecified fracture of second metacarpal bone, right hand, initial encounter for closed fracture Category: Medical (2) Fracture of third metacarpal bone of right hand: Code(s): S62.302A - Unspecified fracture of third metacarpal bone, right hand, initial encounter for closed fracture Category: Medical (3) Dog bite of left hand: Code(s): S61.452A - Open bite of left hand, initial encounter; W54.0XXA - Bitten by dog, initial encounter Category: Medical (4) Dog bite of right hand: Code(s): S61.451A - Open bite of right hand, initial encounter; W54.0XXA - Bitten by dog, initial encounter Category: Medical Plan Assessment and plan: 1. Right 2nd metacarpal fracture, nondisplaced This appears to be a closed fracture 2. Right 3rd metacarpal fracture, nondisplaced Possibly closed, possibly open Both of these are related to dog bites with dorsal cortical penetration at the distal metaphyses. Overall swelling improving 3. Dog bite to right hand with transverse laceration mid palmar, and another laceration at the palmar digital crease of the middle finger Washed out and sutured in the ED 4. Left index finger dog bite wound Question of possible nondisplaced distal phalanx fracture Patient was placed on 7 days of Augmentin in the ED. Augmentin refilled today The patient and her partner believe that overall her swelling is improving, and that she does not feel that there is any worsening today Patient was advised that I feel we can continue with nonoperative management given her improvement and lack of any evidence of active ongoing infection She will continue Augmentin. I do want her to continue to work on finger range of motion of the right hand and showed her some gentle exercises that she is going to work on. Follow-up in approximately 10 days for repeat wound check, sooner with any acute concerns. Anticipate suture removal at that time Medications: Refilled amoxicillin-pot clavulanate 875-125 mg 1 tab PO BID 7 days 14 tabs 0RF Coding Level of Care Code Est Pt Level 3 (98199) Diagnoses Fracture of second metacarpal bone of right hand S62.300A Fracture of third metacarpal bone of right hand S62.302A Dog bite of left hand S61.452A; W54.0XXA Dog bite of right hand S61.451A; W54.0XXA
== END 2024-07-13 08:51 | disposition home or self-care (01) ==
PROVIDERS: PCP Nurse Practitioner Family
DX: S62.300A Unspecified fracture of second metacarpal bone, right hand, initial encounter for closed fracture (principal); S62.302A Unspecified fracture of third metacarpal bone, right hand, initial encounter for closed fracture; S61.452A Open bite of left hand, initial encounter; W54.0XXA Bitten by dog, initial encounter; S61.451A Open bite of right hand, initial encounter
CPT/HCPCS: 99213

== ENCOUNTER 2024-07-25 08:14 | Outpatient (AMB) | payer OTHER, SELFPAY ==
--- NOTE | 2024-07-25 08:15 | A.OFFVIS_ITS ---
Intake Visit Reasons: OV-Rt 2nd & 3rd FX/DogBite DOI 07/08/24 Intake Note: Fawn is a 23 year old ambidextrous female who presents today for a follow up and wound check of her right hand injuries s/p dog bite DOI: 07/08/24. She states everything is going well. Patient hasn't noticed any drainage on the open wound on the dorsal aspect of the hand. Allergies cephalexin [From Keflex] Allergy (Verified 07/25/24 08:24) ate lining of stomach HPI HPI OV-Rt 2nd & 3rd FX/DogBite DOI 07/08/24: Details: Patient is a 23-year-old female who presents for follow-up evaluation of right hand open metacarpal fracture from a dog date of injury 07/08/2024. Today, the patient that she is feeling much better, and then she thing no baseline pain in the right hand. Denies edema, erythema, ecchymosis, or drainage from the laceration sites. No other acute complaints or concerns at this time. 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 Review of Systems Const All systems reviewed & are unremarkable except as noted in HPI and below Physical Exam Const General: cooperative, healthy appearing and no acute distress Orientation/consciousness: oriented to person and oriented to place HEENT Head: Yes normocephalic and Yes atraumatic Eyes EOM: EOMs intact bilaterally Resp Effort & Inspection: normal respiratory effort and able to speak in complete sentences Cardio Jugular venous distension: no JVD Skin General skin exam: turgor normal Rashes: no rashes Neuro General: oriented to person and oriented to place Extrem Other: Patient is alert, oriented, and in no acute distress. Neuro: Normal sensation of the tips of all digits of the left hand at this time Vascular: Cap refill brisk Pain: Patient reports no tenderness to palpation about the laceration sites on either the dorsal and volar aspects of the left hand Patient reports no pain with range of motion ROM: Patient is able to get close to making a closed fist, but due to the position of the suturing is unable to extend the left middle finger fully, is able to extend all other digits fully and without difficulty Skin: There is noted to be an approximately 4-5 cm laceration on the volar and radial aspect of the patient's left hand, with sutures in place and no evidence of surrounding erythema or drainage There are also noted to be 2 small lacerations on the dorsal aspect of the patient's radial left hand, with no active drainage or surrounding erythema at this time No drainage from any of these laceration sites No other evidence of infection Psych: Appears grossly normal Affect normal Attitude cooperative Psych Appearance: grossly normal Affect: normal affect Attitude: cooperative Assessment & Plan Assessment & Plan (1) Fracture of second metacarpal bone of right hand: Code(s): S62.300A - Unspecified fracture of second metacarpal bone, right hand, initial encounter for closed fracture Category: Medical (2) Fracture of third metacarpal bone of right hand: Code(s): S62.302A - Unspecified fracture of third metacarpal bone, right hand, initial encounter for closed fracture Category: Medical (3) Dog bite of left hand: Code(s): S61.452A - Open bite of left hand, initial encounter; W54.0XXA - Bitten by dog, initial encounter Category: Medical (4) Dog bite of right hand: Code(s): S61.451A - Open bite of right hand, initial encounter; W54.0XXA - Bitten by dog, initial encounter Category: Medical Plan Assessment and plan: 1. Right 2nd metacarpal fracture, nondisplaced This appears to be a closed fracture 2. Right 3rd metacarpal fracture, nondisplaced Possibly closed, possibly open Both of these are related to dog bites with dorsal cortical penetration at the distal metaphyses. Overall swelling resolved 3. Dog bite to right hand with transverse laceration mid palmar, and another laceration at the palmar digital crease of the middle finger Washed out and sutured in the ED 4. Left index finger dog bite wound Question of possible nondisplaced distal phalanx fracture No need for further antibiotics at this time Sutures removed, Steri-Strips applied Patient was advised that I feel we can continue with nonoperative management given her improvement and lack of any evidence of active ongoing infection I do want her to continue to work on finger range of motion of the right hand and showed her some gentle exercises that she is going to work on. 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 Orders: Orders XR hand RT min 3V Today M79.641 - Pain in right hand Coding Level of Care Code Est Pt Level 3 (48209) Diagnoses Fracture of second metacarpal bone of right hand S62.300A Fracture of third metacarpal bone of right hand S62.302A Dog bite of left hand S61.452A; W54.0XXA Dog bite of right hand S61.451A; W54.0XXA
== END 2024-07-25 09:10 | disposition home or self-care (01) ==
PROVIDERS: PCP Nurse Practitioner Family
DX: S62.300A Unspecified fracture of second metacarpal bone, right hand, initial encounter for closed fracture (principal); S62.302A Unspecified fracture of third metacarpal bone, right hand, initial encounter for closed fracture; S61.452A Open bite of left hand, initial encounter; W54.0XXA Bitten by dog, initial encounter; S61.451A Open bite of right hand, initial encounter
CPT/HCPCS: 99213

== ENCOUNTER 2024-07-25 08:14 | Outpatient (REF) | payer OTHER, SELFPAY ==
--- NOTE | ~2024-07-25 | XR_ITS ---
EXAMINATION: XR HAND 3 OR MORE VIEWS RIGHT HISTORY: M79.641 - Pain in right hand COMPARISON: Comparison is made with the prior examination dated 07/10/2024. FINDINGS: Three views of the right hand are submitted. Osseous mineralization is normal. There is no fracture or dislocation. The joint spaces are preserved. The soft tissues are unremarkable. XR/XR hand RT min 3V IMPRESSION: Unremarkable examination of the right hand. Electronically signed by: Victor M Snyder MD 07/25/2024 01:07 PM MARTIN GAVIN
== END 2024-07-25 08:15 | disposition home or self-care (01) ==
LOC: HO.HOSX 08:14
PROVIDERS: PCP Nurse Practitioner Family
DX: M79.641 Pain in right hand (principal)
CPT/HCPCS: 73130

== ENCOUNTER → 2024-07-25 08:41 | Outpatient (BNV) | payer OTHER, SELFPAY | PROVIDERS: PCP Nurse Practitioner Family; Visit Provider Radiology Diagnostic Radiology | DX: M79.641 Pain in right hand (principal) | CPT/HCPCS: 73130 ==

== ENCOUNTER 2024-08-10 07:50 | Outpatient (REF) | payer OTHER, SELFPAY ==
--- NOTE | ~2024-08-10 | XR_ITS ---
CLINICAL HISTORY: M79.641 - Pain in right hand Exam: AP, lateral, and oblique views of the right hand. Comparison: Right wrist radiographs July 08, 2024. Findings: Subtle areas of irregularity of the 2nd and 3rd metacarpals are nearly occult on this exam. Overall alignment is unchanged. No new fractures. Joint spaces are well preserved. Soft tissue gas seen on prior study is no longer evident. Impression: Unchanged alignment of the fractures of the 2nd and 3rd metacarpals which are nearly occult on this exam. This document has been electronically signed by: Ashwin Graham MD on 08/10/2024 17:39:54
== END 2024-08-10 07:51 | disposition home or self-care (01) ==
LOC: HO.HOSX 07:50
DX: M79.641 Pain in right hand (principal); S62.300A Unspecified fracture of second metacarpal bone, right hand, initial encounter for closed fracture; S62.302A Unspecified fracture of third metacarpal bone, right hand, initial encounter for closed fracture; S61.451A Open bite of right hand, initial encounter; S61.452A Open bite of left hand, initial encounter; W54.0XXA Bitten by dog, initial encounter; Y93.9 Activity, unspecified; Y92.9 Unspecified place or not applicable; Y99.9 Unspecified external cause status
CPT/HCPCS: 73130

== ENCOUNTER → 2024-08-10 08:08 | Outpatient (BNV) | payer OTHER, SELFPAY | PROVIDERS: Visit Provider Radiology Diagnostic Radiology | DX: S62.300A Unspecified fracture of second metacarpal bone, right hand, initial encounter for closed fracture (principal); S62.302A Unspecified fracture of third metacarpal bone, right hand, initial encounter for closed fracture | CPT/HCPCS: 73130 ==

== ENCOUNTER 2024-08-24 07:53 | Outpatient (RCR) | payer OTHER, SELFPAY ==
--- NOTE | 2024-07-27 08:52 | MHC.OT.EP ---
[address] [phone] Occupational Therapy Plan of Care Patient Name: Fawn Viera Date of Evaluation: 07/27/24 Diagnosis: Right hand dog bite Pain Location: Low pain or pain free at rest Pain Score: 2 Pain Scale Used: Numeric (0 - 10) Aggravating Factors: Hitting hand on something, hand writing Alleviating Factors: None used currently Assessment: 23 yo presents about three weeks s/p dog bite to right hand, resulting in index and middle metacarpal fracture and open wound, needing sutures (removed 07/25/24 and now with steri-strips) and general wound care. At the same time, she has left index tip injury, conts to have small open healing area. On assessment today, wounds are healing well, no s/s of infection, good approximation of edges in larger palm wound. Steri strips on but easily removed today and no longer needing. Small area of maceration at base of middle finger. She has mild edema through hand, healing bruising noted. Wrist range is sloghtly decreased and she has good range in all digits, but tightness w/ full middle finger extension. We have initiated therapy w/ tendon glides and will continue w/ monitoring wound healing, soft tissue/scar management and progression of range, strength and functional use of right hand. Frequency and Duration: The patient will be seen 2x/wk for 4 weeks Short Term Goals: Pt to demo ease of full index extension Initiate scar management/massage Good follow through w/ FMC challenges and use of right hand w/ daily activities Forensic Manager Goals: Pt to report ease w/ use of right hand for moderate daily activities (laundry, groceries) Full wrist AROM Gross grasp >40lb Good healing of palmar soft tissue injuries/wounds Treatment Plan: Therapeutic Exercise Therapeutic Activity Home Exercise Program Patient Education Desensitization/Sensory Re-ed Edema Control ADL Training Paraffin Fluidotherapy MHP Cold Packs Joint Mobilization Soft Tissue Mobilization Kinesiotaping *fluido or paraffin w/ well healed tissue only Electronically Signed By: Dorys Valentin OTR/L CHT Please Sign and return to therapist. Thank you once again for your referral.
--- NOTE | 2024-08-31 10:42 | MHC.OT.DC ---
[address] [phone] F: [phone] Occupational Therapy Discharge Note Patient Name: Fawn Virea Provider: Júnior Medina PA-C Diagnosis: Right hand dog bite Date of Evaluation: 07/27/24 Date of Discharge: 08/24/24 Treatments to Date: 9 Discharge Status: Achieved Goals Improved Function Independent with HEP Discharge Summary: Fawn was referred to OT s/p dog bite ti right hand. She has progressed very well through course of OT and has met all goals. She is doing well with good understanding of scar/soft tissue management and good follow through w/ home program. No further outpatient therapy needed, she will continue strengthening and functional use of hand. Electronically Signed By: FRANCISCO Hernandez/Natividad CHT Reviewed/agree with student documentation: Therapist: Please Sign and return to therapist, thank you for your referral.
== END 2024-08-31 10:43 | disposition home or self-care (01) ==
LOC: HO.OT 07:53
PROVIDERS: PCP Nurse Practitioner Family
DX: S62.302A Unspecified fracture of third metacarpal bone, right hand, initial encounter for closed fracture (principal); S62.300A Unspecified fracture of second metacarpal bone, right hand, initial encounter for closed fracture; S61.451A Open bite of right hand, initial encounter; W54.0XXA Bitten by dog, initial encounter
CPT/HCPCS: 97110; 97140; 97165